=== PATIENT | male | born 1980 | race Caucasian/White ===

== ENCOUNTER 2016-06-05 21:09 | Emergency (ER) | payer BC ==
[~2016-06-05] VITALS: Ht 193 cm; Wt 142.9 kg
[2016-06-05 21:26] VITALS: BP 142/76
== END 2016-06-06 01:02 | disposition home or self-care (01) ==
LOC: ER 21:13
DX: S82.101A Unspecified fracture of upper end of right tibia, initial encounter for closed fracture (principal); S82.001A Unspecified fracture of right patella, initial encounter for closed fracture; X50.0XXA Overexertion from strenuous movement or load, initial encounter; Y93.89 Activity, other specified; Y99.8 Other external cause status; Y92.89 Other specified places as the place of occurrence of the external cause
CPT/HCPCS: 29505; 73562; 73700